=== PATIENT | female | born 1970 | race Two or more races ===

== ENCOUNTER 2021-10-04 07:31 | Emergency (ER) | payer MEDICAID, OTHER ==
[~2021-10-04] VITALS: Ht 162.6 cm; Wt 90.7 kg
[2021-10-04 10:30] VITALS: BP 142/83
== END 2021-10-04 10:40 | disposition home or self-care (01) ==
LOC: ER 07:31
DX: S09.90XA Unspecified injury of head, initial encounter (principal); M54.2 Cervicalgia; E03.9 Hypothyroidism, unspecified; W20.8XXA Other cause of strike by thrown, projected or falling object, initial encounter; Y93.89 Activity, other specified; Y92.89 Other specified places as the place of occurrence of the external cause; Y99.8 Other external cause status
CPT/HCPCS: 70450; 72125

== ENCOUNTER 2021-11-22 06:18 | Emergency (ER) | payer MEDICAID, OTHER ==
[~2021-11-22] VITALS: Ht 162.6 cm; Wt 94.3 kg
[2021-11-22 07:27] LABS: Urine Amorphous Crystal FEW /hpf (None Seen); Urine Bacteria FEW /hpf (None Seen); Urine Blood Negative /uL (Negative); Urine Specific Gravity 1.025 (1.001-1.035); Urine WBC 1 /hpf (0 - 5)
[2021-11-22 08:09] LABS: Basophils # (auto) 0 10 ^3/uL (0-0.2); Basophils % (auto) 0.8 % (0.0-2.0); Eosinophils # (auto) 0.1 10 ^3/uL (0-0.8); Hematocrit 37.5 % (36.0-46.0); Hemoglobin 12.7 g/dL (12.2-16.2); Lymphocytes % (auto) 33.6 % (10.0-50.0); Mean Corpuscular Hemoglobin 30.8 pg (28.0-32.0); Mean Corpuscular Hgb Conc. 33.9 g/dL (32.0-36.0); Mean Corpuscular Volume 90.8 fL (80.0-100.0); Monocytes # (auto) 0.4 10 ^3/uL (0-1.3); Monocytes % (auto) 6.3 % (0.0-12.0); Neutrophils # (auto) 3.4 10 ^3/uL (1.6-8.6); Neutrophils % (auto) 57.3 % (37.0-80.0); Red Blood Cells 4.13 10^6/uL (4.0-5.20); Red Cell Distribution Width 14.4 % (11.8-14.3)
[2021-11-22 08:37] LABS: Albumin 3.7 g/dL (3.4-5.0); Calcium 8.5 mg/dL (8.5-10.1); Potassium 4.1 mmol/L (3.5-5.1)
[2021-11-22 08:41] LABS: BUN/Creatinine Ratio 20.5; Bilirubin, Total 0.4 mg/dL (0.2-1.0); Total Protein 7.3 g/dL (6.4-8.2)
[2021-11-22] MEDS ORDERED: NITR-87 PO (09:25)
[2021-11-22 09:38] VITALS: BP 139/58
== END 2021-11-22 10:23 | disposition home or self-care (01) ==
LOC: ER 06:18
DX: R51.9 Headache, unspecified (principal); N39.0 Urinary tract infection, site not specified; Z32.02 Encounter for pregnancy test, result negative
CPT/HCPCS: 36415; 70450; 80053; 81001; 81025; 84443; 85025

== ENCOUNTER 2022-02-21 06:08 | Emergency (ER) | payer SELFPAY ==
[~2022-02-21] VITALS: Ht 162.6 cm; Wt 91.6 kg
[~2022-02-21 06:08] MED LIST: NITR-87 PO
[2022-02-21] MEDS ORDERED: DOXY-332 PO (07:07)
[2022-02-21] MEDS ORDERED: PRED20TA2 PO (07:07)
[2022-02-21 07:17] VITALS: BP 140/84
== END 2022-02-21 09:10 | disposition home or self-care (01) ==
LOC: ER 06:08
DX: J18.9 Pneumonia, unspecified organism (principal); R07.89 Other chest pain; E03.9 Hypothyroidism, unspecified; Z90.49 Acquired absence of other specified parts of digestive tract; Z20.822 Contact with and (suspected) exposure to COVID-19
CPT/HCPCS: 36415; 71045; 87804; 93005

== ENCOUNTER 2022-03-04 15:59 | Emergency (ER) | payer OTHER ==
[~2022-03-04] VITALS: Ht 162.6 cm; Wt 90.7 kg
[~2022-03-04 15:59] MED LIST changes: +DOXY-332 PO; +PRED20TA2 PO
[2022-03-04] MEDS ORDERED: methylPREDNISolone SOD SUCC 125 MG/2 ML VL IV ONE (16:45)
[2022-03-04 17:01] LABS: Basophils # (auto) 0 10 ^3/uL (0-0.2); Basophils % (auto) 0.4 % (0.0-2.0); Eosinophils # (auto) 0.2 10 ^3/uL (0-0.8); Eosinophils % (auto) 1.9 % (0.0-7.0); Hematocrit 38.5 % (36.0-46.0); Hemoglobin 12.9 g/dL (12.2-16.2); Lymphocytes # (auto) 2.1 10 ^3/uL (0.4-5.4); Lymphocytes % (auto) 25.7 % (10.0-50.0); Mean Corpuscular Hemoglobin 30.3 pg (28.0-32.0); Mean Corpuscular Hgb Conc. 33.5 g/dL (32.0-36.0); Mean Corpuscular Volume 90.3 fL (80.0-100.0); Monocytes # (auto) 0.6 10 ^3/uL (0-1.3); Monocytes % (auto) 6.8 % (0.0-12.0); Neutrophils # (auto) 5.4 10 ^3/uL (1.6-8.6); Neutrophils % (auto) 65.2 % (37.0-80.0); Nucleated Red Blood Cells % 0.2 %; Red Blood Cells 4.26 10^6/uL (4.0-5.20); Red Cell Distribution Width 14.6 % (11.8-14.3); White Blood Cell 8.3 10^3/uL (4.4-10.8)
[2022-03-04 17:19] LABS: Albumin 3.6 g/dL (3.4-5.0); Calcium 8.6 mg/dL (8.5-10.1); Magnesium 2.3 mg/dL (1.6-2.6); Potassium 4.1 mmol/L (3.5-5.1)
[2022-03-04 17:23] LABS: Bilirubin, Total 0.2 mg/dL (0.2-1.0); Total Protein 7.4 g/dL (6.4-8.2)
[2022-03-04] MEDS ORDERED: AZIT1POW PO (19:25)
[2022-03-04 22:17] VITALS: BP 124/73
== END 2022-03-04 22:18 | disposition home or self-care (01) ==
LOC: ER 15:59
DX: J20.9 Acute bronchitis, unspecified (principal); Z20.822 Contact with and (suspected) exposure to COVID-19; Z90.49 Acquired absence of other specified parts of digestive tract; Z90.89 Acquired absence of other organs
CPT/HCPCS: 36415; 71046; 80053; 83605; 83735; 83880; 84484; 85025; 87040; 87426; 93005; 96374; 99285; J2930

== ENCOUNTER 2022-05-04 06:32 | Emergency (ER) | payer SELFPAY ==
[~2022-05-04] VITALS: Ht 162.6 cm; Wt 90.9 kg
[~2022-05-04 06:32] MED LIST changes: +AZIT1POW PO
[2022-05-04] MEDS ORDERED: PRED20TA2 PO (07:45)
[2022-05-04] MEDS ORDERED: AMOX-277 PO (07:45)
[2022-05-04 08:00] VITALS: BP 110/65
== END 2022-05-04 08:03 | disposition home or self-care (01) ==
LOC: ER 06:32
DX: H66.92 Otitis media, unspecified, left ear (principal); Z90.49 Acquired absence of other specified parts of digestive tract; Z90.89 Acquired absence of other organs

== ENCOUNTER 2022-08-03 06:03 | Emergency (ER) | payer SELFPAY ==
[~2022-08-03] VITALS: Ht 162.6 cm; Wt 10.0 kg
[~2022-08-03 06:03] MED LIST changes: +AMOX-277 PO
[2022-08-03 06:26] VITALS: BP 127/70
[2022-08-03] MEDS ORDERED: AMOX-277 PO (07:24)
[2022-08-03] MEDS ORDERED: IBUP800T27 PO (07:35)
== END 2022-08-03 07:32 | disposition home or self-care (01) ==
LOC: ER 06:03
DX: J32.9 Chronic sinusitis, unspecified (principal)

== ENCOUNTER 2022-10-19 08:55 | Emergency (ER) | payer SELFPAY ==
[~2022-10-19] VITALS: Ht 162.6 cm; Wt 90.7 kg
[~2022-10-19 08:55] MED LIST changes: +IBUP800T27 PO
[2022-10-19 09:24] LABS: Basophils # (auto) 0 10 ^3/uL (0-0.2); Basophils % (auto) 0.5 % (0.0-2.0); Eosinophils # (auto) 0.1 10 ^3/uL (0-0.8); Eosinophils % (auto) 1.1 % (0.0-7.0); Hematocrit 41.2 % (36.0-46.0); Hemoglobin 13.8 g/dL (12.2-16.2); Lymphocytes # (auto) 3.3 10 ^3/uL (0.4-5.4); Lymphocytes % (auto) 42.8 % (10.0-50.0); Mean Corpuscular Hemoglobin 30.2 pg (28.0-32.0); Mean Corpuscular Hgb Conc. 33.5 g/dL (32.0-36.0); Mean Corpuscular Volume 90.1 fL (80.0-100.0); Monocytes # (auto) 0.6 10 ^3/uL (0-1.3); Monocytes % (auto) 7.7 % (0.0-12.0); Neutrophils # (auto) 3.8 10 ^3/uL (1.6-8.6); Neutrophils % (auto) 47.9 % (37.0-80.0); Nucleated Red Blood Cells % 0.1 %; Red Blood Cells 4.57 10^6/uL (4.0-5.20); Red Cell Distribution Width 14.1 % (11.8-14.3); White Blood Cell 7.8 10^3/uL (4.4-10.8)
[2022-10-19] MEDS ORDERED: ALBUTEROL SULF 2.5 MG/0.5ML(0.5%) NEB SOLN HHN ONE (09:30)
[2022-10-19] MEDS ORDERED: IPRATROPIUM BROM 0.5 MG/2.5ML INH SOL HHN ONE (09:30)
[2022-10-19] MEDS ORDERED: methylPREDNISolone SOD SUCC 125 MG/2 ML VL IV ONE (09:30)
[2022-10-19] MEDS ORDERED: ALBUTEROL MEDNEB 2.5 mg/3ml NEB ONE (09:33)
[2022-10-19 09:39] LABS: Albumin 4.2 g/dL (3.4-5.0); Calcium 9.2 mg/dL (8.5-10.1); Potassium 3.8 mmol/L (3.5-5.1)
[2022-10-19 09:43] LABS: BUN/Creatinine Ratio 12.5; Bilirubin, Total 0.5 mg/dL (0.2-1.0); Total Protein 7.7 g/dL (6.4-8.2)
[2022-10-19 11:39] VITALS: BP 120/79
== END 2022-10-19 11:53 | disposition home or self-care (01) ==
LOC: ER 08:55
DX: R07.89 Other chest pain (principal); J45.909 Unspecified asthma, uncomplicated; J45.21 Mild intermittent asthma with (acute) exacerbation; Z90.49 Acquired absence of other specified parts of digestive tract; Z98.890 Other specified postprocedural states
CPT/HCPCS: 36415; 71045; 80053; 84484; 85025; 93005; 94644; 96374; 99285; J2930; J7644